=== PATIENT | male | born 1960 | race Caucasian/White ===

== ENCOUNTER → 2024-05-29 08:12 | Outpatient (BNVA) | payer OTHER, SELFPAY | PROVIDERS: PCP Family Medicine; Visit Provider Specialist | DX: M67.441 Ganglion, right hand (principal) | CPT/HCPCS: 73130 ==

== ENCOUNTER 2024-06-20 15:13 | Outpatient (CLI) | payer OTHER, SELFPAY ==
--- NOTE | 2024-06-20 15:25 | MR_ITS ---
WS: [id number] MRI LEFT SHOULDER NONCONTRAST TECHNIQUE: Sagittal T2, coronal T1, T2 and proton density imaging. Axial gradient PDE imaging. CLINICAL INFORMATION: L SHOULDER PAIN COMPARISON: None. FINDINGS: Moderate to advanced arthritis AC joint with small amount of fluid and edema. Slight impingement of t he distal supraspinatus. Advanced arthritis glenohumeral articulation with hypertrophic spurring along the humeral neck. Bone- on-bone articulation. Subchondral cystic change involving the humeral head and glenoid. Joint effusio n. Chronic thinning of the supraspinatus which appears intact. Chronic thinning of the infraspinatus wit h tiny insertional tear. Teres minor appears intact. Subscapularis tendon appears intact with tendino dipti. Biceps tendon intact within the bicipital groove. Intra-articular biceps tendon appears intact with tendinopathy. Biceps labral anchor appears intact. Chronic degenerative irregularity of the gle noid labrum. MR/MR shoulder LT wo con* [id number] IMPRESSION: 1. Moderate to advanced degenerative arthritis AC joint with fluid and edema. Mild narrowing of the subacromial space. 2. Advanced arthritis of the glenohumeral articulation with hypertrophic spurr ing along the medial humeral head and neck. 3. Chronic thinning of the distal supraspinatus and infraspinatus. Tiny infras pinatus insertional tear 4. Subscapularis tendon appears intact with tendinopathy. 5. Intra-articular biceps tendon appears intact. 6. Tendinopathy involving the intra-articular biceps tendon. 7. Moderate joint effusion.
== END 2024-06-20 15:14 | disposition home or self-care (01) ==
LOC: RAD 15:14
PROVIDERS: PCP Family Medicine; Visit Provider Family Medicine
DX: M19.012 Primary osteoarthritis, left shoulder (principal); S46.012A Strain of muscle(s) and tendon(s) of the rotator cuff of left shoulder, initial encounter; M75.92 Shoulder lesion, unspecified, left shoulder; M75.21 Bicipital tendinitis, right shoulder; M25.412 Effusion, left shoulder; X58.XXXA Exposure to other specified factors, initial encounter
CPT/HCPCS: 73221

== ENCOUNTER 2024-06-27 18:56 | Emergency (ER) | payer OTHER, SELFPAY ==
[2024-06-27] VITALS (9 sets, daily range): BP systolic 112–140; BP diastolic 57–96; PULSE 71–93; RESP 16–20; O2SAT 96–99; BMI 25.1
--- NOTE | 2024-06-27 19:20 | CTR_ITS ---
PROCEDURE INFORMATION: Exam: CT Abdomen And Pelvis With Contrast Exam date and time: 06/27/2024 8:57 PM Age: 64 years old Clinical indication: Pain; Other: RT testicle; Prior surgery; Surgery date: 6+ months; Surgery type: Hernia; Additional info: Right testicle pain/lower abd pain/hx of hernia TECHNIQUE: Imaging protocol: Computed tomography of the abdomen and pelvis with contrast. Radiation optimization: All CT scans at this facility use at least one of these dose optimization techniques: automated exposure control; mA and/or kV adjustment per patient size (includes targeted exams where dose is matched to clinical indication); or iterative reconstruction. Contrast material: OMNI 350; Contrast volume: 100 ml; Contrast route: INTRAVENOUS (IV); COMPARISON: CR XR KUB [id number] 08/13/2017 10:18 PM RADIATION DOSE METRICS: Total DLP (mGy-cm): 793 FINDINGS: Lungs: Subsegmental bibasilar atelectasis. The visualized lung bases are otherwise grossly clear. Diaphragm: No evidence of diaphragmatic defect. Liver: Hepatic cirrhosis. No significant ascites. No gross evidence of hepatic lesion within limitations of a single phase exam. Gallbladder and biliary ducts: Unremarkable. No intra-hepatic or extra-hepatic biliary dilatation. Pancreas: Unremarkable. Spleen: Unremarkable. Adrenal glands: Unremarkable. Kidneys and ureters: No renal parenchymal abnormality. No hydronephrosis or ureteral stone. Stomach and bowel: Sigmoid colonic diverticulosis without evidence of acute diverticulitis. No bowel obstruction or perienteric inflammatory changes. Appendix: Normal appendix. Intraperitoneal space: No evidence of free air or fluid collection. Vasculature: No aneurysmal dilatation or dissection of the abdominal aorta. The celiac trunk, SMA and SARTHAK are grossly patent. No evidence of IVC thrombus. The portal vein, SMV and splenic veins are grossly patent. Lymph nodes: No adenopathy. Urinary bladder: Grossly unremarkable. Reproductive: Suspected trace bilateral hydroceles. Small fat containing left-sided inguinal hernia. Bones/joints: No evidence of acute fracture or aggressive osseous lesion. Moderate multilevel spondylosis of the lumbar spine with facet arthrosis and osteophytosis. Mild grade 1 anterolisthesis of L3 on L4 secondary to facet arthrosis. There is moderate-severe central stenosis at this level. Grade 1 anterolisthesis of L5 on S1 secondary to chronic bilateral L5 pars defects. Severe right-sided foraminal stenosis. Consider correlation with follow-up outpatient MRI to evaluate for neural impingement. Moderate osteoarthritis of both hips. Soft tissues: No evidence of fluid collection or hematoma in the superficial soft tissues. Fat containing left-sided inguinal hernia measuring approximately 8 cm in length by 2.[address]/CT abdomen pelvis w con* [id number] IMPRESSION: 1. No evidence of acute abnormality in the abdomen or pelvis. 2. Fat containing left-sided inguinal hernia. 3. Hepatic cirrhosis. No significant ascites.
--- NOTE | 2024-06-27 19:21 | ED_ITS ---
HPI - Male Genitourinary 2 General: Chief complaint: Urogenital-Male Stated complaint: severe pain/ pressure in testicles Time Seen by Provider: 06/27/24 19:02 Source: patient Mode of arrival: ambulatory Limitations: no limitations History of Present Illness: Patient is a 64-year-old male present to the emergency department complaining of right testicular pain onset past couple days. History of hernia mesh repair back in the early , states that he has recurrence of his occasionally of his inguinal hernia popping out of place, normally he is able to reduce it but since Monday has not been able to. States the pain is 10/10 worse with any movement. States that he has significant pain with straining for bowel movement. No fever, abdominal pain, nausea/vomiting, or other symptoms at this time MD Complaint: testicle pain Onset (ago): day(s) Duration: constant Location: right testicle Radiation: abdomen Severity: severe Severity scale (1-10): 10 Exacerbating factors: movement Associated symptoms: Deny dysuria, nausea or vomiting Related Data Home Medications Medication Instructions Recorded Confirmed lisinopril 20 mg tablet 20 mg PO DAILY 05/29/24 05/29/24 Allergies Allergy/AdvReac Type Severity Reaction Status Date / Time bee venom Allergy Mild Unknown Uncoded 05/29/24 08:23 Review of Systems 2 General: Reports: 10 or more systems reviewed and unremarkable except in HPI and below Const: Denies: fever(s), chills, change in appetite, change in weight or diaphoresis ENMT: Denies: throat pain or hoarseness Card: Denies: chest pain, palpitations or lightheadedness Resp: Denies: dyspnea, productive cough or wheezing GI: Reports: abdominal pain; Denies: nausea, vomiting, diarrhea, constipation, bloating, change in stool character or hematochezia : Reports: testicular pain; Denies: flank pain, difficulty urinating, dysuria, urinary frequency or urinary urgency Musc: Denies: neck pain or back pain Skin/Breast: Denies: rash or new lesions Neuro: Denies: headache(s) or dizziness PFSH ED 2 PFSH: Social History Smoking and tobacco/nicotine status: current every day tobacco/nicotine user Physical Exam 2 Const: COMMON NORMALS: average body habitus, patient oriented x3, no limitations, alert and well nourished GENERAL APPEARANCE: cooperative O RIENTATION/CONSCIOUSNESS: Yes awake OTHER: Appears uncomfortable lying supine in ED bed HENMT: COMMON NORMALS: normocephalic, atraumatic, hearing grossly normal bilaterally, external ears normal, Normal external nose present, Normal nasal mucous membranes and turbinates present and moist oral mucous membranes HEAD & SCALP: normocephalic and atraumatic NOSE: Normal external nose present and Normal nasal mucous membranes and turbinates present EXTERNAL EAR: Yes external ears normal Eye: COMMON NORMALS: Equal, round and reactive pupils present, EOMs intact bilaterally, conjunctivae normal and normal visual valente by confrontation C ONJUNCTIVA: Yes conjunctivae normal PUPIL: Yes Equal, round and reactive pupils present Neck/C-Spine: COMMON NORMALS: full ROM, supple, no meningeal signs and no JVD Resp: COMMON NORMALS: normal respiratory effort, No retractions, No use of accessory muscles and clear to auscultation bilaterally AUSCULTATION: clear to auscultation bilaterally, no crackles, no rales, no rhonchi and no wheezes Cardio: COMMON NORMALS: no JVD, regular rate, regular rhythm, S1 normal heart sound present, S2 normal heart sound present, No gallops present (Cardio), No clicks present (Cardio), No murmurs present (Cardio), No rub (Cardio) and Peripheral pulses 2+ throughout RATE: regular rate RHYTHM: regular rhythm HEART SOUNDS: S1 normal heart sound present and S2 normal heart sound present PERIPHERAL PULSES: Peripheral pulses 2+ throughout GI: COMMON NORMALS: Normal to inspection, nondistended, normoactive bowel sounds present, Soft to palpation, No hepatosplenomegaly present and no masses AUSCULTATION: Yes normoactive bowel sounds PALPATION: Yes Soft to palpation, No Guarding due to palpation present (GI), No Rigid due to palpation and Yes No hepatosplenomegaly present RECTAL EXAM: Yes deferred OTHER: Reproducible tenderness to palpation of the right suprapubic region : OTHER: Mild tenderness to palpation of the right testicle with no palpable mass or palpable hernia at this time. No significant swelling. Extremity: COMMON NORMALS: normal to inspection and full ROM Neuro: COMMON NORMALS: patient oriented x3, moves all extremities, no focal motor deficits and no sensory deficits noted SENSORIUM/ORIENTATION: Yes alert MENINGEAL SIGNS: Yes no meningeal signs Psych: COMMON NORMALS: mental status grossly normal, cooperative and speech normal SPEECH: Yes normal speech Skin: COMMON NORMALS: no rashes or lesions noted GENERAL SKIN EXAM: no rashes or lesions noted Course 2 Vital Signs: Vital signs: Vital Signs Pulse Rate 76 06/27/24 22:30 Respiratory Rate 18 06/27/24 20:30 Blood Pressure 118/65 06/27/24 22:30 Pulse Oximetry 96 06/27/24 22:30 Oxygen Delivery Me thod Room Air 06/27/24 22:30 MDM - Male Medical Decision Making Patient has history of right inguinal hernia, presented saying he was having pain and could not reduce this hernia. States he has a history of mesh repair in early , it normally is able to reduce it. Complaining of significant pain on arrival, report ported it was specifically worse with straining for bowel movement. No urinary symptoms or other symptoms of nausea vomiting or illness. His lab work unremarkable. Abdomen pelvis CT did not demonstrate any signs of hernia to the right inguinal side, no indications of incarceration or strangulation. There was a fat-containing left-sided inguinal hernia, patient was asymptomatic in this region. On exam also could not appreciate the right sided hernia, though he was tender to palpation in this area. This could be musculoskeletal, however he is encouraged to follow-up with primary care provider for any further evaluation. At recheck he is noted to be sleeping and stating that he is not in as much pain. Reasons to return were discussed, patient discharged home at this time. Lab Data 06/27/24 20:05 06/27/24 20:05 Radiology Impressions Abdomen/Pelvis CT 06/27/24 19:20 IMPRESSION: 1. No evidence of acute abnormality in the abdomen or pelvis. 2. Fat containing left-sided inguinal hernia. 3. Hepatic cirrhosis. No significant ascites. Laboratory Results WBC 12.47 10^3/uL (3.29-11.43) H 06/27/24 20:05 RBC 5.28 10^6/uL (3.85-5.65) 06/27/24 20:05 Hgb 16.10 g/dL (11.27-16.99) 06/27/24 20:05 Hct 48.0 % (37-53) 06/27/24 20:05 MCV 90.9 fl (82-101) 06/27/24 20:05 MCH 30.5 pg (27-33) 06/27/24 20:05 MCHC 33.5 g/dL (30-55) 06/27/24 20:05 RDW 12.4 % (12.1-15.1) 06/27/24 20:05 Plt Count 399 10^3/cmm (157-399) 06/27/24 20:05 MPV 9.2 fL (7.4-10.4) 06/27/24 20:05 Neut % (Auto) 61.4 % 06/27/24 20:05 Lymph % (Auto) 28.3 % 06/27/24 20:05 [place] % (Auto) 8.2 % 06/27/24 20:05 Eos % (Auto) 1.2 % 06/27/24 20:05 Baso % (Auto) 0.4 % 06/27/24 20:05 Neut # (Auto) 7.66 10^3/uL (1.8-7.7) 06/27/24 20:05 Lymph # (Auto) 3.5 10^3/uL (0.8-4.8) 06/27/24 20:05 [place] # (Auto) 1.0 10^3/uL (0.2-0.9) H 06/27/24 20:05 Eos # (Auto) 0.2 10^3/uL (0.0-0.8) 06/27/24 20:05 Baso # (Auto) 0.1 10^3/uL (0.0-0.1) 06/27/24 20:05 Nucleated RBC % (auto) 0 % 06/27/24 20:05 Nucleated RBCs # 0.0 /100WBC 06/27/24 20:05 Sodium 139 mmol/L (136-145) 06/27/24 20:05 Potassium 3.4 mmol/L (3.5-5.1) L 06/27/24 20:05 Chloride 101 mmol/L (98-107) 06/27/24 20:05 Carbon Dioxide 23 mmol/L (22-29) 06/27/24 20:05 Anion Gap 18.4 (5-19) 06/27/24 20:05 BUN 14 mg/dL (8-23) 06/27/24 20:05 Creatinine 1.2 mg/dL (0.7-1.2) 06/27/24 20:05 GFR Calculation 61.3 mL/min (90-130) L 06/27/24 20:05 Glucose 116 mg/dL (65-115) H 06/27/24 20:05 Calculated Osmolality 289 mOsm/kg (285-295) 06/27/24 20:05 Calcium 9.0 mg/dL (8.5-10.5) 06/27/24 20:05 Total Bilirubin 0.9 mg/dL (0.15-1.2) 06/27/24 20:05 AST 42 U/L (0-40) H 06/27/24 20:05 ALT 45 U/L (0-41) H 06/27/24 20:05 Alkaline Phosphatase 88 U/L (40-130) 06/27/24 20:05 Total Protein 7.6 g/dL (6.6-8.7) 06/27/24 20:05 Albumin 3.9 g/dL (3.5-5.2) 06/27/24 20:05 Globulin 3.7 g/dL (1.3-4.6) 06/27/24 20:05 All radiology interpretation(s) finalized by discharge Discharge Plan Discharge Patient Disposition: Home Clinical Impression: RLQ abdominal pain, History of inguinal hernia Condition: Stable Prescriptions: No Action lisinopril 20 mg tablet 20 mg PO DAILY Discharge Orders: Discharge ED (Routine); Ordered 06/27/24 Ordered By: Martin Robison Referrals: Sanchez Mccabe MD [Primary Care Provider] - Discharge Diet: Usual diet Discharge Activity: Increase activity as tolerated Patient Instructions: Abdominal Pain (ED), Opioid Safety, Pain Management Activity Restrictions/Additional Instructions: Follow-up with your primary care provider early next week as discussed. Tylenol or ibuprofen for pain relief at home. If you have any severe worsening of your pain or other new or concerning symptoms return to the emergency department. Coding Level of Care Code ED Director Systems for Deo Beltran
[2024-06-27] MEDS: ketorolac 30 mg/mL INJ IVP (20:09)
--- NOTE | 2024-06-27 20:13 | PC.NURSE ---
pt requesting water, VAISHALI Robison notified and okayed pt to drink.
[2024-06-27 20:20] LABS: Basophils # 0.1 10^3/uL (0.0-0.1); Basophils % 0.4 %; Eosinophils # 0.2 10^3/uL (0.0-0.8); Eosinophils % 1.2 %; Lymphocytes # 3.5 10^3/uL (0.8-4.8); Lymphocytes % 28.3 %; Mean Corpuscular HGB Conc 33.5 g/dL (30-55); Mean Corpuscular Hemoglobin 30.5 pg (27-33); Mean Corpuscular Volume 90.9 fl (82-101); Mean Platelet Volume 9.2 fL (7.4-10.4); Monocytes % 8.2 %; Neutrophils # 7.66 10^3/uL (1.8-7.7); Neutrophils % 61.4 %; Nucleated Red Blood Cells % 0 %; Platelet Count 399 10^3/cmm (157-399); Red Blood Count 5.28 10^6/uL (3.85-5.65); Red Cell Distribution Width 12.4 % (12.1-15.1); White Blood Count 12.47 10^3/uL (3.29-11.43)
[2024-06-27 20:43] LABS: Alanine Aminotransferase 45 U/L (0-41); Albumin Level 3.9 g/dL (3.5-5.2); Alkaline Phosphatase 88 U/L (40-130); Anion Gap 18.4 (5-19); Aspartate Amino Transferase 42 U/L (0-40); Blood Urea Nitrogen 14 mg/dL (8-23); Carbon Dioxide 23 mmol/L (22-29); Chloride 101 mmol/L (98-107); Creatinine Clr Calc Pharmacy 70.2711; Globulin 3.7 g/dL (1.3-4.6); Glomerular Filtration Rate 61.3 mL/min (90-130); Glucose 116 mg/dL (65-115); Osmolality Calculated 289 mOsm/kg (285-295); Potassium 3.4 mmol/L (3.5-5.1); Sodium 139 mmol/L (136-145); Total Bilirubin 0.9 mg/dL (0.15-1.2); Total Protein 7.6 g/dL (6.6-8.7)
[2024-06-27] MEDS: iohexol 350 mg/mL 500 mL Btl (per mL) IV (21:01)
== END 2024-06-27 22:40 | disposition home or self-care (01) ==
PROVIDERS: Emergency Provider Physician Assistant; PCP Family Medicine
DX: R10.31 Right lower quadrant pain (principal); Z72.0 Tobacco use
CPT/HCPCS: 74177; 80053; 85025; 96374; 99285; J1885

== ENCOUNTER 2024-07-04 10:16 | Outpatient (CLI) | payer OTHER, SELFPAY ==
--- NOTE | 2024-07-04 10:18 | CT_ITS ---
WS: [id number] LDCT LUNG CANCER SCREENING HISTORY: NICOTINE DEPENDENCE TECHNIQUE: Axial imaging performed from the apices to 1 cm below the costophrenic angles. Coronal and sagittal reformats are submitted with axial MIP series. All CT scans at [facility] use at least one of these dose optimization techniques: automated exposure control; mA and/or kV adjustment per patient size (includes targeted exams where dose is matched to clinical indication); or iterativ e reconstruction. DLP: 72.01 mGy.cm DIvol: Mean CTDIvol: 1.40 (mGy) COMPARISON: 06/27/2024 Diagnostic quality: Satisfactory Lungs: Moderate pulmonary hyperinflation. No pulmonary mass or nodule. No pneumonia. No endobronchial lesions. Heart: Normal size heart with no pericardial effusion.. Other findings: Minimal atherosclerosis aorta. Normal size pulmonary artery. Small hiatal hernia. Cir rhotic liver. CT/CT lung screening [id number] IMPRESSION: LUNG-RADS: 1-Negative FOLLOW UP: 12 Month: Continue annual screening with LDCT OTHER FINDINGS (S MODIFIER): None.
== END 2024-07-04 10:17 | disposition home or self-care (01) ==
LOC: RAD 10:16
PROVIDERS: PCP Family Medicine; Visit Provider Family Medicine
DX: Z12.2 Encounter for screening for malignant neoplasm of respiratory organs (principal); J98.4 Other disorders of lung; K44.9 Diaphragmatic hernia without obstruction or gangrene; K74.60 Unspecified cirrhosis of liver
CPT/HCPCS: 71271

== ENCOUNTER → 2024-08-21 10:21 | Outpatient (BNVA) | payer OTHER, SELFPAY | PROVIDERS: PCP Family Medicine; Visit Provider Specialist | DX: M25.512 Pain in left shoulder (principal); M19.012 Primary osteoarthritis, left shoulder | CPT/HCPCS: 73030 ==

== ENCOUNTER 2024-08-27 12:01 | Outpatient (CLI) | payer OTHER, SELFPAY ==
--- NOTE | 2024-08-27 12:06 | USR_ITS ---
PROCEDURE INFORMATION: Exam: US Scrotum Exam date and time: 08/27/2024 12:19 PM Age: 64 years old Clinical indication: Scrotum pain; Additional info: Scrotal pain TECHNIQUE: Imaging protocol: Real-time ultrasound of the scrotum and contents with color Doppler and image documentation. COMPARISON: CT abdomen pelvis w con* [id number] 06/27/2024 8:57 PM FINDINGS: Right testicle: Normal. No mass. Normal color Doppler and arterial waveforms. No torsion. 4.6 cm x 2.3 cm x 3.4 cm Left testicle: Normal. No mass. Normal color Doppler and arterial waveforms. No torsion. Epididymides: Normal. Left 8 mm x 11 mm x 9 mm. Right epididymis is not visible Scrotum/soft tissues: Small left side hydroceles. Other findings: 4.5 cm x 2.6 cm x 3.4 cm US/US scrotum [id number] IMPRESSION: 1. Normal testicular ultrasound. 2. Normal left epididymis 3. Right epididymis is not visible 4. Small left-sided hydrocele
== END 2024-08-27 12:02 | disposition home or self-care (01) ==
LOC: RAD 12:02
PROVIDERS: PCP Family Medicine; Visit Provider Nurse Practitioner Family
DX: N43.3 Hydrocele, unspecified (principal); R10.30 Lower abdominal pain, unspecified
CPT/HCPCS: 76870

== ENCOUNTER 2025-08-02 16:13 | Day surgery (SDC) | payer SELFPAY ==
[2025-08-02] VITALS (14 sets, daily range): BP systolic 115–152; BP diastolic 68–86; PULSE 62–86; RESP 12–20; TEMP 36.6–36.9; O2SAT 91–99
--- NOTE | 2025-08-02 | XR_ITS ---
WS: [id number] Left hand, C-arm fluoroscopy views, 08/02/2025 Clinical Data: OR PICS Comparison: Left hand, 08/02/2025, 1649 hours Findings: Dr. Agudelo performed complex tendon repair and bone fragment removal involving the left fifth finger and left fourth metacarpal. XR/XR hand LT 2V [id number] Impression: Complex tendon repair and bone fragment removal of the left fifth finger and le ft fourth metacarpal.
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
--- OUTSIDE RECORDS SUMMARY | 2025-08-02 16:18 | XMS_ITS | Data Portability ---
Author Organization VERNON [facility] Address [address] [place] [address] Care Team Providers Care Surgical Assistant Name Role Phone MARY MCCABE Primary Care Provider Assessment No assessment recorded. Plan of Treatment Reminders Order Date Submit Date Provider Last Modified By Organization Details Last Modified Time Details Appointments None recorded. Lab lipid panel, blood 2023 024 SmartPay Jieyin [facility], [address] [place] , [place], [address], 4 08:04:15 CMP, serum or plasma 2023 024 Shareablee [facility], [address] [place], [address], 4 07:25:05 CBC 2023 024 BELLA [facility], [address] [facility], [facility] [address], [place], [address], 4 11:23:53 Referral urologist referral 2023 024 [email or web address] [facility], [address], [place], [address], 4 09:43:59 orthopedic surgeon referral 2023 024 [email or web address] 8 [facility], [address] [place], [address], 4 12:21:42 orthopedic surgeon referral 2023 024 [email or web address] [facility], [address] [place], [address], 4 13:34:42 Procedures colonoscopy screening (PROC) 2023 024 [email or web address] Not available 17:48:56 Surgeries None recorded. Imaging LDCT, chest, for lung cancer screening 2023 024 [email or web address] [facility], [address] [place], [address], 4 13:51:22 MRI, shoulder, w/o contrast 2023 024 [email or web address] 2 [facility], [address] [place], [address], 4 16:11:45 Medication Orders Celebrex 200 mg capsule 2023 024 [email or web address] [facility]/Pharmacy #[id number], [address] [facility] [address], [address], 4 13:00:03 levofloxaci n 500 mg tablet 2023 024 [id number], [address] [facility] [address], [address], 4 09:46:52 lisinopril 20 mg tablet 2023 024 [facility]/Pharmacy #[id number], [address] [facility] [address], [address], 4 17:19:40 Patient TargetsNo targets recorded. Patient InstructionsNo instructions recorded. Reason for Referral Orthopedic Surgeon Referral for Ganglion cyst of right hand Referring Physician: Mary Mccabe, Family Medicine, Encounter Date: 05/08/2024 Orthopedic Surgeon Referral for Osteoarthritis of shoulder region Referring Physician: Mary Mccabe [facility], Encounter Date: 07/08/2024 Urologist Referral for Pain of right testicle Referring Physician: Mary Mccabe [facility], Encounter Date: 07/19/2024 Results Created Date Observation Date Name Description Value Unit Range Abnormal Flag Note LastModifiedBy Organization Detail LastModifiedTime 05/09/20 24 05/09/2024 CBC WBC 7.5 x10 4.5-10 .5 Not Available [facility] [address] [facility] [address], [place], [address], 05/09/2024 11:23:53 05/09/20 24 05/09/2024 CBC RBC 4.73 x10 4.30-5 .90 Not Available [facility] [address] [facility], [place], [address], 05/09/2024 11:23:53 05/09/20 24 05/09/2024 CBC HGB 14.7 g/dL 13.5-1 8.0 Not Available [facility] [address] [facility] 1, [place], [address], 05/09/2024 11:23:53 05/09/20 24 05/09/2024 CBC HCT 43.4 % 35.0-6 0.0 Not Available [facility] [address] [facility], [place], [address], 05/09/2024 11:23:53 05/09/20 24 05/09/2024 CBC MCV 91.7 fL 80.0-9 9.9 Not Available [facility] [address] [facility] Melissa [facility] 1, [place], [address], 05/09/2024 11:23:53 05/09/20 24 05/09/2024 CBC MCH 31.1 pg 27.0-3 2.0 Not Available [facility] [address] [facility] 1, [place], [address], 05/09/2024 11:23:53 05/09/20 24 05/09/2024 CBC MCHC 33.9 g/dL 32.0-3 6.0 Not Available [facility] [address] [facility], [place], [address], 05/09/2024 11:23:53 05/09/20 24 05/09/2024 CBC RDW 13.9 % 11.5-1 4.5 Not Available [facility] [address] [facility], [place], [address], 05/09/2024 11:23:53 05/09/20 24 05/09/2024 CBC plt 250.3 x10 150.0- 451.0 Not Available [facility] [address] [facility], [place], [address], 05/09/2024 11:23:53 05/09/20 24 05/09/2024 CBC lymphocytes % 37.5 % 20.0-5 0.0 Not Available [facility] [address] [facility] 1, [place], [address], 05/09/2024 11:23:53 05/09/20 24 05/09/2024 CBC granulcytes % 51.2 % 30.0-7 0.0 Not Available [facility] [address] [facility] 1, [place], [address], 05/09/2024 11:23:53 05/09/20 24 05/09/2024 CBC monocytes % 6.9 % 2.0-16 .0 Not Available [facility] [address] [facility] 1, [place], [address], 05/09/2024 11:23:53 05/09/20 24 05/09/2024 CBC granulcytes# 3.8 x10 Not Roula ilable [facility] [address] [facility] [address], [place], [address], 05/09/2024 11:23:53 05/09/20 24 05/09/2024 CBC lymphocytes # 2.8 x10 Not Available [facility] [address], [place], [address], 05/09/2024 11:23:53 05/09/20 24 05/09/2024 CBC monocytes # 0.5 x10 Not Avai lable [facility] [address] [facility] [address], [place], [address], 05/09/2024 11:23:53 05/09/20 24 05/10/2024 LIPID PANEL , STAND WALLY cholesterol, total 112 mg/dL <200 normal Not Available [address], [address], 05/10/2024 07:25:04 05/09/20 24 05/10/2024 LIPID PANEL , STAND WALLY HDL cholesterol 49 mg/dL > or = 40 normal Not Available [address], [address], 05/10/2024 07:25:04 05/09/20 24 05/10/2024 LIPID PANEL , STAND WALLY triglyceride s 68 mg/dL <150 normal Not Available [address], [address], 05/10/2024 07:25:04 05/09/20 24 05/10/2024 LIPID PANEL , STAND WALLY LDL-choleste rol 49 mg/dL _(maritza c) normal Refer ence range : <100 Beena able range <100 mg/dL for prima ry preve ntion ; <70 mg/dL for patie nts with CHD or diabe tic patie nts with > or = 2 CHD risk facto rs. LDL-C is now calcu lated using the Julia n-[facility] kins taylor mijares, which is a valid ated novel metho d jef jeffery accur acy than the Fried lit equat ion in the estim ation of LDL-C . Julia mijares SS et al. BRYAN. 2013; 310(1 9): 2061- 2068 (http ://ed ucati on.Qu lawsonEtacts. com/f aq/FA Q164) Not Available [facility] [address] [address] [place], [address], 05/10/2024 07:25:04 05/09/20 24 05/10/2024 LIPID PANEL , STAND WALLY chol/HDLC ratio 2.3 (calc ) <5.0 normal Not Available [address] , [place], [address], 05/10/2024 07:25:04 05/09/2005/10/2024 LIPID PANEL , STAND WALLY non HDL cholesterol 63 mg/dL _(maritza c) <130 normal For patie nts with diabe jenny plus 1 major ASCVD risk facto r, treat ing to a non-H DL-C goal of <100 mg/dL (LDL- C of <70 mg/dL ) is jaquan wilson optio n. Not Available [address] [address] [address] , [place], [address], 05/10/2024 07:25:04 05/09/2005/10/2024 COMPR EHENS JENNIFER METAB OLIC PANEL glucose 153 mg/dL 65-99 high Fasti ng refer ence inter courtney For someo ne witho ut known diabe jenny, a gluco se value >125 mg/dL indic ates that they may have diabe jenny and this shoul d be confi rmed with a follo w-up test. Not Available [facility] [address] [address] [address], [place], [address], 05/10/2024 07:25:05 05/09/20 24 05/10/2024 COMPR EHENS JENNIFER METAB OLIC PANEL urea nitrogen (BUN) 17 mg/dL 7-25 normal Not Available [address], [address], 05/10/2024 07:25:05 05/09/20 24 05/10/2024 COMPR EHENS JENNIFER METAB OLIC PANEL creatinine 0.88 mg/dL 0.70-1 .35 normal Not Available [address], [address], 05/10/2024 07:25:05 05/09/20 24 05/10/2024 COMPR EHENS JENNIFER METAB OLIC PANEL eGFR 97 mL/mi n/1.7 3m2 > or = 60 normal Not Available [address], [address], 05/10/2024 07:25:05 05/09/20 24 05/10/2024 COMPR EHENS JENNIFER METAB OLIC PANEL BUN/creatini ne ratio SEE NOTE: (calc ) 6-22 Not Repor adrian: BUN and Creat inine are withi n refer ence range . Not Available [address], [address], 05/10/2024 07:25:05 05/09/20 24 05/10/2024 COMPR EHENS JENNIFER METAB OLIC PANEL sodium 137 mmol/ L 135-14 6 normal Not Available [address], [address], 05/10/2024 07:25:05 05/09/20 24 05/10/2024 COMPR EHENS JENNIFER METAB OLIC PANEL potassium 4.1 mmol/ L 3.5-5. 3 normal Not Available [address], [address], 05/10/2024 07:25:05 05/09/20 24 05/10/2024 COMPR EHENS JENNIFER METAB OLIC PANEL chloride 105 mmol/ L 98-110 normal Not Available [address], [address], 05/10/2024 07:25:05 05/09/20 24 05/10/2024 COMPR EHENS JENNIFER METAB OLIC PANEL carbon dioxide 23 mmol/ L 20-32 normal Not Available [address], [address], 05/10/2024 07:25:05 05/09/20 24 05/10/2024 COMPR EHENS JENNIFER METAB OLIC PANEL calcium 8.9 mg/dL 8.6-10 .3 normal Not Available [address], [address], 05/10/2024 07:25:05 05/09/20 24 05/10/2024 COMPR EHENS JENNIFER METAB OLIC PANEL protein, total 6.6 g/dL 6.1-8. 1 normal Not Available [address], [address], 05/10/2024 07:25:05 05/09/20 24 05/10/2024 COMPR EHENS JENNIFER METAB OLIC PANEL albumin 3.6 g/dL 3.6-5. 1 normal Not Available [address], [address], 05/10/2024 07:25:05 05/09/20 24 05/10/2024 COMPR EHENS JENNIFER METAB OLIC PANEL globulin 3.0 g/dL_ (calc ) 1.9-3. 7 normal Not Available [address], [address], 05/10/2024 07:25:05 05/09/20 24 05/10/2024 COMPR EHENS JENNIFER METAB OLIC PANEL albumin/glob ulin ratio 1.2 (calc ) 1.0-2. 5 normal Not Available [address], [address], 05/10/2024 07:25:05 05/09/20 24 05/10/2024 COMPR EHENS JENNIFER METAB OLIC PANEL bilirubin, total 0.6 mg/dL 0.2-1. 2 normal Not Available [address], [address], 05/10/2024 07:25:05 05/09/20 24 05/10/2024 COMPR EHENS JENNIFER METAB OLIC PANEL alkaline phosphatase 74 U/L 35-144 normal Not Available [address] [address] [place], [address], 05/10/2024 07:25:05 05/09/20 24 05/10/2024 COMPR EHENS JENNIFER METAB OLIC PANEL AST 38 U/L 10-35 high Not Available [address], [address], 05/10/2024 07:25:05 05/09/20 24 05/10/2024 COMPR EHENS JENNIFER METAB OLIC PANEL ALT 39 U/L 9-46 normal Not Available [address], [address], 05/10/2024 07:25:05 06/21/20 24 06/20/2024 MRI, shoul sudheer, w/o contr ast No observ ation record ed. [facility] [address] [place], [address], 06/25/2024 14:22:08 07/04/20 24 07/04/2024 LDCT, chest , for lung cance r scree bartolo No observ ation record ed. [facility] [address] [place], [address], 07/07/2024 11:59:47 Result Notes None recorded. Problems Name Problem SNOMED Code Status Onset Date Resolution Date Notes Provider Name and Address Organization Details Recorded Time Pain of left shoulder joint 9734731525059 9109 Active 2023 Mary Mccabe MD [address] [place] [address], [address] [place] [address] 5, [facility] 4 15:13:57 Elevated blood-press ure reading without diagnosis of hypertensio n 843671871 Active 2023 Mary Mccabe MD [address] [place] [address], [address] [place] [address] 5, [facility] 4 15:19:18 Essential hypertensio n 08933905 Active 2023 Mary Mccabe MD [address] [place] [address] 5, [facility] 4 17:19:15 Smoker 14664567 Active 2023 Mary Mccabe MD [address] [place] [address] 5, [facility] 4 17:22:40 Ganglion cyst of right hand 2528861005009 07 Active 2023 Mary Mccabe MD [address] [place] [address] 5, [facility] 4 17:28:14 Orchitis and epididymiti s 615475036 Active 2023 Mary Mccabe MD [address] [place] [address] 5, [facility] 4 11:01:44 Osteoarthri tis of shoulder region 63682732 Active 2023 Mary Mccabe MD [address] [place] [address] 5, [facility] 4 11:04:59 Pain of right testicle 6750170101730 9107 Active 2023 Mary Mccabe MD [address] [place], [address], [facility], TinaLYvonne 4 10:00:36 Problem Notes None recorded. Procedures Surgical History Date Name Laterality Status Provider Name and Address Organization Details Recorded Time Hernia Repair completed Pamella Chowdhury [facility], Dhruv 05/02/2024 14:56:07 leg repair completed Sneads Ferrymark Chowdhury [facility], LJhonLYvonne 05/02/2024 14:56:19 Imaging Results None recorded. Procedure Notes None recorded. Medical Equipment None Reported. Allergies Allergen ID Allergen Name Allergen Category Reaction Reaction Severity Criticality Documentation Date Start Date Code Code System Note Provider Name and Address Organization Details Recorded Time 77179 honey bee venom medicatio n Not available Not available Not available 05/02/2024 77257 7 RxNorm Pamella Chowdhury [facility], TinaLYvonne 4 14:54:49 Medications Name Sig Start Date Stop Date Status Note LastModified by Organization Details LastModified Time celecoxib 200 mg capsule Take 1 capsule twice a day by oral route. active Not Available Not Available No t Available meloxicam 15 mg tablet TAKE 1 TABLET BY MOUTH DAILY active Not Available Not Available No t Available lisinopril 20 mg tablet TAKE 1 TABLET BY MOUTH EVERY DAY active Not Available Not Available No t Available levofloxacin 500 mg tablet TAKE 1 TABLET BY MOUTH EVERY 24 HOURS FOR 10 DAYS 07/19 completed Not Available Not Available Not Available Vitals Date Recorded Body height Body mass index (BMI) Body weight Head circumference Heart rate Respiratory rate Body temperature Systolic And Diastolic Systolic And Diastolic Provider Name and Address Organization Details Last Updated DateTime 4 180.34 cm 27 kg/m2 45055.7 3 g 238.76 cm 87 /min 16 /min 98.2 [degF] 200/118 mm[Hg] 166/100 mm[Hg] Pamella Chowdhury [facility], L.LYvonne 4 15:11:43 Date Recorded Body height Body mass index (BMI) Body weight Body temperature Oxygen saturation Oxygen saturation in Arterial blood by Pulse oximetry Heart rate Systolic And Diastolic Provider Name and Address Organization Details Last Updated DateTime 4 180.34 cm 26.9 kg/m2 33323.3 3 g 97.6 [degF] 98 % 98 % 80 /min 150/90 mm[Hg] [facility] 4 17:07:26 Date Recorded Body height Body mass index (BMI) Body weight Body temperature Oxygen saturation Oxygen saturation in Arterial blood by Pulse oximetry Heart rate Systolic And Diastolic Provider Name and Address Organization Details Last Updated DateTime 4 180.34 cm 26.1 kg/m2 47852.4 7 g 97.4 [degF] 98 % 98 % 71 /min 142/84 mm[Hg] [facility] 4 10:52:23 Date Recorded Body height Body mass index (BMI) Body weight Body temperature Oxygen saturation Oxygen saturation in Arterial blood by Pulse oximetry Heart rate Systolic And Diastolic Provider Name and Address Organization Details Last Updated DateTime 4 180.34 cm 25.4 kg/m2 31205.8 1 g 97.3 [degF] 98 % 98 % 90 /min 150/84 mm[Hg] [facility] 4 09:49:24 Date Recorded Body height Body mass index (BMI) Body weight Body temperature Oxygen saturation Oxygen saturation in Arterial blood by Pulse oximetry Heart rate Systolic And Diastolic Provider Name and Address Organization Details Last Updated DateTime 4 180.34 cm 26.6 kg/m2 45430.3 5 g 97.3 [degF] 99 % 99 % 66 /min 140/84 mm[Hg] [facility] 4 12:53:05 Social History Question Answer Notes LastModified by Organizat ion Details LastModified Time Tobacco Smoking Status Current Every Day [facility] 05/02/2024 14:57:39 What Is Your Level Of Caffeine Consumption? Moderate Information not available 05/08/2024 What Type Of Diet Are You Following? REGULAR Information not available 05/08/2024 Which Illicit Or Recreational Drugs Have You Used? Marijuana Information not available 05/08/2024 Who Is Your Employer? [employer] Information not available 05/08/2024 What Is Your Relationship Status? Information not available 05/08/2024 Do You Have Any Dietary Restrictions? No Information not available 05/08/2024 Sex: Unknown Functional Status Question Answer Note LastModified by Organizat ion Details LastModified Time Do you use any illicit or recreational drugs? Yes Information not available 05/08/2024 What is your level of alcohol consumption? Heavy Information not available 05/08/2024 Are you currently employed? Yes Information not available 05/08/2024 Are you able to walk independently without assistance or assistive devices? YESWOREST Information not available 05/08/2024 Are you able to care for yourself independently? Yes Information not available 05/08/2024 Mental Status None recorded. Family History Nothing Reported. Medical History No medical history recorded. Immunizations Vaccine Type Date Status Note Provider Nam e and Address Organization Details Recorded Time Hep A-Hep B 05/07/2019 completed Sandra Harrington [facility], .L.CJhon 05/21/2024 07:53:32 Past Encounters Encounter ID Performer Location Encounter Start Date Encounter Closed Date Diagnosis/Indication Diagnosis SNOMED-CT Code Diagnosis ICD10 Code Diagnosis IMO Codes Diagnosis Note [id number] Mary Mccabe MD [facility] ([facility]) [address] [place] [phone] 05/02/2024 14:48:27 05/02/2024 17:49:52 Pain of left shoulder joint 9728263513 8426284 M25.512 The patient likely has a torn rotator cuff based on exam. The patient has done conservati ve therapy is not under a physician guidance. I would recommend obtaining a MRI for further evaluation and to guide proper treatment. Elevated blood-pressure reading without diagnosis of hypertension 042306902 R03.0 Patient blood pressure is elevated today. Patient states that he has had high blood pressure in the past and has been on medication before. Patient states he does not regularly check his blood pressure. Recommend that he checks his blood pressure at home and establishe s care with a PCP to review the log of his blood pressure readings and potentiall y restart his medication s. [id number] Mary Mccabe MD [facility] ([facility]) [address] [place] [phone] 05/08/2024 17:00:04 05/08/2024 17:55:30 Essential hypertension 14596247 I10 Patient does have hypertensi on. Discussed starting medication and patient was agreeable. Will start with lisinopril and obtain lab work today. Smoker 38721310 F17.200 Screening for malignant neoplasm of respiratory tract 102512026 Z12.2 Meets her criteria for low-dose CT for lung cancer screening. Screening for malignant neoplasm of colon 366916861 Z12.11 Recommend the patient proceed with colonoscop y. Patient was encouraged to make a colonoscop y consult with Dr. Maldonado or Dr. Shane. Hyperlipid emia screening 298999761 Z13.220 Ganglion c yst of right hand 0797044932 64463 M67.441 Exam is consistent with a ganglion cyst. Since he is having significan t symptoms with that, I would recommend evaluation for surgical excision. [id number] Mary Mccabe MD [facility] ([facility]) [address] [place] [phone] 07/08/2024 10:44:56 07/08/2024 11:25:03 Orchitis and epididymitis 517800124 N45.3 Likely epididymit is based on history and exam. Will start levofloxac in. Follow-up if symptoms do not improve. Osteoarthr itis of shoulder region 56809468 M19.019 Discussed significan t degenerati ve changes within his shoulder. Recommende d orthopedic referral and the patient was agreeable. Smoker 15557135 F17.200 Low-dose CT was negative for concerning lesions. Repeat in 1 year. [id number] Mary Mccabe MD [facility] ([facility]) [address] [place] [phone] 07/19/2024 09:37:18 07/19/2024 10:14:11 Pain of right testicle 1982455376 5885344 N50.811 Given the persistent pain, we will go ahead and set him up for urology. Patient was encouraged to avoid lifting greater than 20 pounds and avoid movements that seem to exacerbate his pain. Patient was agreeable with the plan. [id number] Mary Mccabe MD [facility] ([facility]) [address] [place] [phone] 09/03/2024 12:44:57 09/03/2024 13:17:57 Pain of left shoulder joint 8184803363 9573263 M25.512 Osteoarthr itis of shoulder region 11503548 M19.019 Patient does have significan t disease of his shoulder and it is not surprising that shoulder replacemen t is recommende d. Patient is coming continue with restrictio ns and has received a shoulder injection. Patient is trying to get to a point where he is able to proceed with surgery. Will prescribe Celebrex and have him stop the meloxicam. Health Concerns Section Related Observation LastModified by Organization Detai ls LastModified Time None Recorded Concern Status LastModified by Organization Details LastModified Time None Recorded Advance Directives Directive None Recorded Payers Insurance Date Sequence Insurance Name Policy Number Policy Jansen Covered Member ID Jansen Member ID Guarantor Name 09/03/2024 1 USHA REZA [employer] ([employer]) [id number] Maciej Park [id number] 1 [id number] Maciej Park Notes Date Note Type Note Provider Name and Address Organization Details Recorded Time 05/02/2024 text/html Joint PainReport ed by PatientHPIFor quality, patient reportssharp. For location, patient reportsleft shoulder.ROS as noted in the HPI This is a 64-year-old gentleman that comes in today to discuss chronic left shoulder pain. The patient recently just obtained insurance and wanted to come in to get evaluated and get the ball rolling on evaluation and treatment. If patient does not have a regular doctor. 6 patient has no new medical issues. Patient denies any specific injury to his left shoulder but states that it is wear and tear . Patient believes he has torn his rotator cuf as he has significant pain and difficulty lifting his arm. Mary Mccabe MD [address] [place] [address], [phone], [facility] 05/05/2024 09:02:39 05/08/2024 text/html Musculoskeletal PainReported by PatientHPIFor quality, patient reportssharp,tingling, anddull. For severity, patient reportsworsening,inter feres with sleep, andinterferes with work/school. For associated symptoms, patient reportsweak limbsandtinglingbut reportsno fever. For location, patient reportsleft shoulder. For duration, patient reportspresent for >12 months. For alleviating factors, patient reportsrest. For aggravating factors, patient reportsmovement/positi oning,bending over, andtwisting.ROS as noted in the HPI This is a 64-year-old gentleman that comes in today to establish care. Patient has been checking his blood pressure at home and it has been elevated when he checks it at home as well as again in the office today. Patient was seen in the walk-in for his left shoulder pain. MRI has been ordered. Patient has not had lab work or any kind of health maintenance in several years. Patient has never had a colonoscopy. Patient is a smoker and has greater than 10-[id number]-ggpn history. The patient also has a lesion on his right wrist. The patient has had a swelling around this wrist and states that he accidentally struck it against the machine at work and has had some numbness and tingling of his fingers. Patient has noticed some improvement in his numbness. Mary Mccabe MD [address] [place] [address], [phone], [facility] 05/09/2024 09:55:20 07/08/2024 text/html This is a 64-year-old gentleman that comes in today for ER follow-up. The patient went to the ER due to testicular pain. The patient was concerned about a inguinal hernia. The patient underwent imaging that did not demonstrate hernia. The patient is continues to have right testicular pain near the posterior aspect that radiates up into his inguinal canal. Patient denies any concerns for STDs. Patient also had not received his test results from his imaging. Mary Mccabe MD [address] [place] [address], [phone], [facility] 07/11/2024 10:42:49 07/19/2024 text/html ROS as noted in the HPI Pt finished his abx but states that he is still having right testicle pain. Pt thinks the mesh from hernia has busted through . Pt states that it is a sharp constant pain, worse with movement. Patient reports just minimal improvement with antibiotics. Pain is definitely exacerbated with certain movements. Mary Mccabe MD [address] [place] [address], [phone], [facility] 07/21/2024 08:11:50 09/03/2024 text/html This is a 64-year-old gentleman that comes in today for routine follow-up. The patient has seen orthopedics and they recommended a shoulder replacement. The patient is going to hold off on surgery at this time. The patient received shoulder injection. Patient was started on meloxicam but he has not tolerated it well. The patient would like to try Celebrex. The patient did see urology and they found no concerning findings so now he has a follow-up with surgery for evaluation of possible recurrent hernia. Mary Mccabe MD [address] [place] [address], [phone], [facility] 09/04/2024 16:26:12
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
--- NOTE | 2025-08-02 16:39 | W.ED.WOUNDLC ---
HPI - Wound/Laceration General: Chief Complaint: Wound/Laceration Stated Complaint: L hand Pinkey cut Time Seen by Provider: 08/02/25 16:29 History of Present Illness: 62-year-old male presents emergency room after a chainsaw accident he has a cut on the dorsal aspect of his left hand extending across the fifth MP joint to the proximal phalanx joint. He is unsure of his last tetanus. He can partially extend the finger. He denies any other injuries. Related Data Home Medications ?Medication ?Instructions ?Recorded ?Confirmed lisinopril 20 mg tablet 20 mg PO DAILY 05/29/24 08/21/24 Previous Rx's ?Medication ?Instructions ?Recorded meloxicam 15 mg tablet 15 mg PO DAILY #30 tabs 08/22/24 amoxicillin 500 mg-potassium 1 tab PO BID complex laceration, 08/02/25 clavulanate 125 mg tablet infection prevention 10 days #20 (Augmentin) tabs calcium 600 mg (as 1 tab PO DAILY Bone health and 08/02/25 carbonate)-vitamin D3 10 mcg (400 healing 30 days #30 tabs unit) tablet (Calcium 600 + D(3)) Allergies Allergy/AdvReac Type Severity Reaction Status Date / Time bee venom Allergy Mild Unknown Uncoded 08/02/25 16:37 [facility] ED PFSH: Social History Smoking and tobacco/nicotine status: current every day tobacco/nicotine user Physical Exam Extremity: OTHER: Full-thickness laceration across the posterior aspect of the left hand with no active bleeding wound is gaping there is exposed joint and tendon there does appear to be some injury to the tendon as well. Course Vital Signs: Vital signs: Vital Signs Temperature 98.0 F 08/02/25 21:48 Pulse Rate 67 08/02/25 21:48 Respiratory Rate 20 H 08/02/25 21:48 Blood Pressure 115/81 08/02/25 21:48 Pulse Oximetry 95 08/02/25 21:48 Oxygen Delivery Me thod Room Air 08/02/25 21:48 MDM - Wound/Laceration Medical Decision Making Reviewed case with Dr. Agudelo he will take the patient to the OR for a washout and repair of laceration and evaluation of tendon and joint. Discussed with the patient his tetanus updated and he was given a gram of Ancef. Lab Data I reviewed the patient's lab results. 08/02/25 17:10 08/02/25 17:10 Radiology Impressions Hand X-Ray 08/02/25 16:38 IMPRESSION: Left hand soft tissue laceration with fractures of the left 4th and 5th digits. Laboratory Results WBC 9.29 10^3/uL (3.29-11.43) 08/02/25 17:10 RBC 4.52 10^6/uL (3.85-5.65) 08/02/25 17:10 Hgb 13.60 g/dL (11.27-16.99) 08/02/25 17:10 Hct 41.1 % (37-53) 08/02/25 17:10 MCV 90.9 fl (82-101) 08/02/25 17:10 MCH 30.1 pg (27-33) 08/02/25 17:10 MCHC 33.1 g/dL (30-55) 08/02/25 17:10 RDW 12.2 % (12.1-15.1) 08/02/25 17:10 Plt Count 277 10^3/cmm (157-399) 08/02/25 17:10 MPV 9.5 fL (7.4-10.4) 08/02/25 17:10 Neut % (Auto) 57.8 % 08/02/25 17:10 Lymph % (Auto) 30.4 % 08/02/25 17:10 [place] % (Auto) 8.5 % 08/02/25 17:10 Eos % (Auto) 2.4 % 08/02/25 17:10 Baso % (Auto) 0.5 % 08/02/25 17:10 Neut # (Auto) 5.37 10^3/uL (1.8-7.7) 08/02/25 17:10 Lymph # (Auto) 2.8 10^3/uL (0.8-4.8) 08/02/25 17:10 [place] # (Auto) 0.8 10^3/uL (0.2-0.9) 08/02/25 17:10 Eos # (Auto) 0.2 10^3/uL (0.0-0.8) 08/02/25 17:10 Baso # (Auto) 0.1 10^3/uL (0.0-0.1) 08/02/25 17:10 Nucleated RBC % (auto) 0 % 08/02/25 17:10 Nucleated RBCs # 0.0 /100WBC 08/02/25 17:10 Sodium 135 mmol/L (136-145) L 08/02/25 17:10 Potassium 4.5 mmol/L (3.5-5.1) 08/02/25 17:10 Chloride 101 mmol/L (98-107) 08/02/25 17:10 Carbon Dioxide 24 mmol/L (22-29) 08/02/25 17:10 Anion Gap 14.5 (5-19) 08/02/25 17:10 BUN 14 mg/dL (8-23) 08/02/25 17:10 Creatinine 0.8 mg/dL (0.7-1.2) 08/02/25 17:10 GFR Calculation 97.6 mL/min (90-130) 08/02/25 17:10 Glucose 107 mg/dL (65-115) 08/02/25 17:10 Calculated Osmolality 281 mOsm/kg (285-295) L 08/02/25 17:10 Calcium 8.7 mg/dL (8.5-10.5) 08/02/25 17:10 Total Bilirubin 0.8 mg/dL (0.15-1.2) 08/02/25 17:10 AST 40 U/L (0-40) 08/02/25 17:10 ALT 37 U/L (0-41) 08/02/25 17:10 Alkaline Phosphatase 82 U/L (40-130) 08/02/25 17:10 Total Protein 6.7 g/dL (6.6-8.7) 08/02/25 17:10 Albumin 3.6 g/dL (3.5-5.2) 08/02/25 17:10 Globulin 3.1 g/dL (1.3-4.6) 08/02/25 17:10 All radiology interpretation(s) finalized by discharge Discharge Plan Discharge Patient Disposition: Admitted As Inpatient Clinical Impression: Laceration of left hand involving extensor tendon, Contact with chainsaw as cause of accidental injury, Open fracture proximal phalanx finger, Open fracture metacarpal bone of finger Condition: Stable Discharge Diet: Advance as tolerated Discharge Activity: Limit activity as instructed Coding Level of Care Code ED Digital Sales Representative for Deo Beltran
[2025-08-02] MEDS: morphine 4 mg/mL SDV 1 mL IVP (17:21)
[2025-08-02] MEDS: tetanus-dipt-pertussis 0.5 mL SDV IM (17:22)
[2025-08-02 17:24] LABS: Hematocrit 41.1 % (37-53); Hemoglobin 13.60 g/dL (11.27-16.99); Mean Corpuscular HGB Conc 33.1 g/dL (30-55); Mean Corpuscular Hemoglobin 30.1 pg (27-33); Mean Corpuscular Volume 90.9 fl (82-101); Nucleated Red Blood Cells % 0 %; Platelet Count 277 10^3/cmm (157-399); Red Blood Count 4.52 10^6/uL (3.85-5.65); White Blood Count 9.29 10^3/uL (3.29-11.43)
[2025-08-02] MEDS: ceFAZolin 2,000 mg SDV 2000 MG IVP ×3 (17:30→19:29)
[2025-08-02 17:38] LABS: Alanine Aminotransferase 37 U/L (0-41); Albumin Level 3.6 g/dL (3.5-5.2); Alkaline Phosphatase 82 U/L (40-130); Blood Urea Nitrogen 14 mg/dL (8-23); Calcium 8.7 mg/dL (8.5-10.5); Carbon Dioxide 24 mmol/L (22-29); Chloride 101 mmol/L (98-107); Creatinine Clr Calc Pharmacy 104.0553; Globulin 3.1 g/dL (1.3-4.6); Glucose 107 mg/dL (65-115); Osmolality Calculated 281 mOsm/kg (285-295); Sodium 135 mmol/L (136-145); Total Protein 6.7 g/dL (6.6-8.7)
[2025-08-02 17:45] LABS: Anion Gap 14.5 (5-19); Potassium 4.5 mmol/L (3.5-5.1)
[2025-08-02 17:46] LABS: Aspartate Amino Transferase 40 U/L (0-40)
--- NOTE | 2025-08-02 18:51 | P.HP_ITS ---
Providers/Chief Complaint 2 Admitting Physician: Keanu Agudelo DO Primary Care Provider: Sanchez Mccabe MD Chief Complaint: L hand Pinkey cut History of Present Illness Maciej Park is a 65 year old male patient's was working with a chainsaw earlier today. He had the chainsaw kicked back and he has a dorsal hand and finger laceration of the small finger extending into the dorsal aspect of the hand. Patient per emergency department was able to open and close his fingers and actively extend his finger including a small finger as well. Given the complexly of the laceration as well is contamination orthopedics was consulted for evaluation and treatment recommendations. Patient states he last ate yesterday for dinner. He has not eaten yet today however he did have soda roughly around 315-330 this afternoon. Patient denies any other injuries elsewhere. Review of Systems 2 General: Reports: 10 or more systems reviewed and unremarkable except in HPI and below Medications/Allergies Home Medications ?Medication ?Instructions ?Recorded ?Confirmed ?Last Taken ?Type lisinopril 20 mg tablet 20 mg PO DAILY 05/29/2408/03 Unknown History meloxicam 15 mg tablet 15 mg PO DAILY #30 tabs 08/03 10/25 Unknown Rx Allergies Allergy/AdvReac Type Severity Reaction Status Date / Time bee venom Allergy Mild Unknown Uncoded 08/02/25 16:37 PFSH Acute 2 PFSH: Social History Smoking and tobacco/nicotine status: current every day tobacco/nicotine user Vitals/I&O/Wt Last Vital Signs Temp 98.2 F 08/02/25 18:38 Pulse 76 08/02/25 18:38 Resp 18 08/02/25 18:38 BP 138/86 08/02/25 18:38 Pulse Ox 97 08/02/25 18:38 O2 Del Method Room Air 08/02/25 18:38 08/02/25 08/02/25 08/02/25 06:59 14:59 22:59 Intake Total 0 / 0 Balance 0 / 0 Weight last 48 hrs Weight 180 lb Physical Exam 2 Narrative: Orthopedic examination of the left hand: Orthopedic examination left hand is limited secondary to patient just recently having dressing placed by the emergency department and patient having pain and discomfort and wishing not to have the dressing taken down. At this point in time examination is based off of clinical pictures from emergency department as well as per the emergency department examination. Patient has a complex laceration of the dorsal aspect of the hand extending from zone 3 into zone 5 and 6. Patient has visible tendon with complex laceration due to chainsaw. Per emergency department fingertip is neurovascularly intact with brisk capillary refill less than 2 seconds is able to flex and extend the small finger. Once again the rest of the examination elective and secondary to patient recently having a bedside washout the emergency department with wet-to-dry dressing. Data 08/02/25 17:10 08/02/25 17:10 Xray Ortho: Radiologist's impression: Patient: Maciej Park Unit #: [id number] : 1960 Age/Sex: 65 / M ADM Date: 08/02/25 Loc: ER Room/Bed: Attending Dr: Ordering Provider/Ordering MD: Vikram Ortega DO Date of Service: 08/02/25 Procedure(s): XR hand LT min 3V* [id number] Accession Number(s): [id number] Report Number: [id number] PROCEDURE INFORMATION: Exam: XR Left Hand Exam date and time: 08/02/2025 4:46 PM Age: 65 years old Clinical indication: Other: Lac; Additional info: Lt hand pain; Man vs chainsaw; Laceration to lt 5th digit. TECHNIQUE: Imaging protocol: Radiologic exam of the left hand. Views: 3 or more views. COMPARISON: No relevant prior studies available. FINDINGS: Bones/joints: There are fractures involving the proximal phalanx of the left hand 5th digit and left 4th metacarpal shaft. Multiple small bony fragments are noted. There are no radiopaque foreign body seen. Soft tissues: There is soft tissue laceration involving the ulnar portion of the left hand. XR/XR hand LT min 3V* [id number] IMPRESSION: Left hand soft tissue laceration with fractures of the left 4th and 5th digits. A&P Assessment and plan 1. Laceration of left hand involving extensor tendon: 2. Contact with chainsaw as cause of accidental injury: 3. Open fracture proximal phalanx finger: 4. Open fracture metacarpal bone of finger: Plan: N.p.o.?patient ate last night, last drink a soda at 3:30 PM X-rays reviewed?patient has small bony fragments from the left small finger proximal phalanx fracture and the left fourth metacarpal shaft these appear to be incomplete fractures and otherwise appear to be stable no other appreciable foreign bodies noted Pain control Patient received IV antibiotics in the emergency department Underwent bedside I&D with wet-to-dry dressing applied in the emergency department Orthopedics consulted Plan to take to the OR this evening in urgent fashion for a left hand irrigation and debridement with primary closure, possible tendon repair Patient this point time had a kickback from a chainsaw earlier today. He went to the emergency department was found to have ability to open and close his hand extended small digit but has a dorsal laceration extending from the zone 3 to zone 6 in the dorsal aspect of the hand including in the the left small finger. At this point in time given the complexity as well as contamination and there is small bony fragmentation from the chainsaw from the small finger proximal phalanx and the ring finger fourth metacarpal bone would recommend taking this to the OR this evening for a formal irrigation debridement with primary closure and plan for possible tendon repair if necessary. Patient at this point in time we detailed the ins and outs procedure the risk benefits complication alternatives surgical nonsurgical treatment options. Risk of surge include not limited to make a better make it worse, injury to nerves vessels or tendons, infection, decreased functional range of motion of the hand/stiffness, possible further surgeries and amputation. Understanding risk of surgery patient like to proceed with surgical invention. All questions have been answered at this time. Will go ahead and get him onto the surgery schedule today. Patient will receive IV antibiotics as he did in the emergency department and perioperatively and plan will be to discharge home this evening with appropriate dressings and splint in place and will receive p.o. antibiotics upon discharge. Patient understands agrees with current plan. All questions answered. PDMP PDMP Reviewed: Not Reviewed Attestations 2 Medical Necessity Statement*: Left hand complex laceration secondary to chainsaw injury with possible tendon involvement as well as fractures of the fifth proximal phalanx and the fourth metacarpal shaft Coding Level of Care Code Acute Code for Chg Fwd Diagnoses Laceration of left hand involving extensor tendon S61.412A; S66.822A Contact with chainsaw as cause of accidental injury W29.3XXA Open fracture proximal phalanx finger S62.619A Open fracture metacarpal bone of finger S62.309Q Time Spent (min) 50
--- NOTE | 2025-08-02 19:18 | P.ANESASSM_ITS ---
Pre-Anesthetic Assessment Height/Weight: Height 5 ft 11 in Weight 180 lb Temp Pulse Resp BP Pulse Ox O2 Del Method 98.2 F 76 18 138/86 97 Room Air 08/02/25 18:38 08/02/25 18:38 08/02/25 18:38 08/02/25 18:38 08/02/25 18:38 08/02/25 18:38 Preop Diagnosis: Chainsaw complex laceration left hand with open fractures fifth proximal ph Operation Date: 08/02/25 19:40 Proposed Procedures p Incision & Drainage Upper Extremity possible tendon repair(Left) - Keanu Jammie, DO Was Beta Mary taken within 24 hours: N/A Was Clonidine taken within 24 hours: N/A Social Alcohol and Tobacco Exam alert, oriented x 3 and clear to auscultation bilaterally Airway Submandibular: within normal limits Cervical ROM: Other (States he has neck pain at baseline) Mallampati: Class III Comments: Comments: No upper teeth, poor bottom dentition. Denies any loose teeth Anesthetic Plan ASA status: 2 Anesthesia: General Other: No prior issues with anesthesia Patient reportedly had a Pepsi around 3:30 PM today. No food today Lisinopril is on patient's chart but he states that he has recently stopped taking this medication because his blood pressure has leveled out. Preop BP 138/86 Smokes nicotine and marijuana Occasional alcohol use, 1?2 beers weekly Labs reviewed from today and assessable for procedure On auscultation patient appeared to have premature contractions. Hooked patient up to EKG in preop which confirmed this. Patient is currently asymptomatic Plan for GETA Medications/Allergies Home Medications ?Medication ?Instructions ?Recorded ?Confirmed ?Last Taken ?Type lisinopril 20 mg tablet 20 mg PO DAILY 05/29/2408/03 Unknown History meloxicam 15 mg tablet 15 mg PO DAILY #30 tabs 08/03 10/25 Unknown Rx Allergies Allergy/AdvReac Type Severity Reaction Status Date / Time bee venom Allergy Mild Unknown Uncoded 08/02/25 16:37 [facility] Anesthesia Social History Smoking and tobacco/nicotine status: current every day tobacco/nicotine user Data Anesthesia 08/02/25 17:10 08/02/25 17:10 Short CBC 08/02/25 Range/Units 17:10 WBC 9.29 (3.29-11.43) 10^3/uL Hgb 13.60 (11.27-16.99) g/dL Hct 41.1 (37-53) % MCV 90.9 (82-101) fl Plt Count 277 (157-399) 10^3/cmm Neut % (Auto) 57.8 % Neut # (Auto) 5.37 (1.8-7.7) 10^3/uL BMP 08/02/25 17:10 Sodium 135 L Potassium 4.5 Chloride 101 Carbon Dioxide 24 BUN 14 Creatinine 0.8 Glucose 107 Calcium 8.7 Liver Function 08/02/25 Range/Units 17:10 Total Bilirubin 0.8 (0.15-1.2) mg/dL AST 40 (0-40) U/L ALT 37 (0-41) U/L Alkaline Phosphatase 82 (40-130) U/L Albumin 3.6 (3.5-5.2) g/dL
[2025-08-02] MEDS: acetaminophen 1,000 MG/100 ML PIGGYBACK 400 MG IV (19:20)
[2025-08-02] MEDS: ROPivacaine 0.5% SDV 30 mL 150 MG INJECTION (20:00)
[2025-08-02] MEDS: neomycin-poly-bacitracin oint 28 gm 1 APPLIC TOPICAL (20:35)
--- NOTE | 2025-08-02 21:08 | P.BOP_ITS ---
Date of Procedure: 08/02/2025 Surgeon: Keanu Agudelo DO Service Vehicle Operator(s): None Procedure(s) performed: Left hand irrigation and debridement (10 cm x 4 cm x 1 cm) Left hand complex laceration primary closure Left hand fourth metacarpal fracture(incomplete)?closed treatment Left hand fifth finger proximal phalanx fracture (incomplete)?closed treatment Left hand extensor digiti minimi tendon repair Left hand extensor digitorum commonis /juncturae tendon to small finger tendon repair Left hand small finger sagittal band repair Left hand loose body bony fragment removal (x 2) Findings of the procedure(s): Patient was found to have a complex laceration with a chainsaw to the left small finger. Patient did have extensive tendon involvement however there was the ulnar aspect of the tendon was intact up to the extensor digiti minimi there was a longitudinal split through this which we did a [id number] repair there was also complete laceration of the EDC/juncture a tendon a which subsequently we were able to repair. Also the extensor camacho with sagittal bands was disrupted and underwent repair of this as well. Patient was found to have fractures of the proximal phalanx of the small finger as well as incomplete fracture of the fourth metacarpal both had loose bony fragments that were completely destabilized and devitalized of no soft tissue attachments the bony fragments were then subsequently removed the fractures were incomplete nature and were planning to being treated closed with ulnar gutter splinting. Patient did have complex laceration was able to achieve primary closure over the zone 4 region I was able to have soft tissue and fat some of the skin was completely removed we were able to get soft tissue and fat coverage over the entire tendon. Patient tolerated well without issues or complications taken recovery in stable condition with ulnar gutter splint placed Estimated blood loss: 10 mL Specimen(s) removed: 2 bony fragments from fracture removed Post-operative diagnosis: Left hand complex laceration secondary to chainsaw with extensor tendon involvement sagittal band involvement, left hand fourth metacarpal fracture, left hand fifth proximal phalanx fracture, loose body/bony fragments
--- NOTE | 2025-08-02 21:14 | P.OP_ITS ---
Operative Report Date of procedure: August 02, 2025 Pre-op diagnosis: Left hand chainsaw injury with extensor tendon involvement Post-op diagnosis: Left hand complex laceration secondary to chainsaw with extensor tendon involvement sagittal band involvement, left hand fourth metacarpal fracture, left hand fifth proximal phalanx fracture, loose body/bony fragments Post-op findings: See operative report narrative Procedure done: Left hand irrigation and debridement (10 cm x 4 cm x 1 cm) Left hand complex laceration primary closure Left hand fourth metacarpal fracture(incomplete)?closed treatment Left hand fifth finger proximal phalanx fracture (incomplete)?closed treatment Left hand extensor digiti minimi tendon repair Left hand extensor digitorum commonis /juncturae tendon to small finger tendon repair Left hand small finger sagittal band repair Left hand loose body bony fragment removal (x 2) Implants: Arthrex 4-0 FiberWire for tendon repair Specimens removed/disposition: 2x loose bodies/bony fragments removed Surgeon: Keanu Agudelo DO [employer] Supervisor: None Anesthesia: General Estimated blood loss: 10 mL 64 minutes IV fluids: 1000 mL Urine output: None Complications: None Findings: See operative report Condition: stable Disposition: same day Brief History: Patient is a pleasant 65-year-old male who sustained a chainsaw injury during a kickback to the left hand on the dorsal aspect this extended from zone 3 into zone 6. This was over the dorsal aspect and over the left small finger patient. Emergency Department was able to flex and extend his small finger. Patient does appear to have incomplete fractures of the fifth proximal phalanx and the fourth metacarpal. At this point in time given the complexity of the laceration possible soft tissue defect and contamination orthopedics was consulted for evaluation and treatment recommendations at this point in time given this extensiveness and complexity of the laceration recommend this going to the OR emergently for left hand irrigation and debridement with primary closure, possible tendon repair. Patient understands the ins and outs procedure the risk benefits complication alternatives surgical nonsurgical treatment options. Understanding risk of surgery patient like to proceed with surgical invention. All questions answered at this time. Procedure: Patient was seen evaluated in the preoperative holding area. Consent was reviewed and signed with patient. Correct extremities and subsequently marked once patient was seen evaluated by anesthesia and appropriate timing passed since patient's last oral intake patient was cleared for surgery and taken back to the operative suite he was kept on [facility]. This point time he went was in the OR and underwent anesthesia per the anesthesia apartment once properly anesthetized and armboard was applied to the left upper extremity a tourniquet was placed to the left upper extremity. An armboard applied to the left upper extremity. Patient then underwent a seizure. She department spoke anesthetized left upper extremities and prepped and draped in orthopedic fashion. Final timeout performed. Patient received appropriate preoperative antibiotics as already had received antibiotics Emergency Department upon admission as well. Esmarch tourniquet was exsanguinate the left upper extremity tourniquet insufflated 200 mmHg. This point in time I started off with irrigation just to debride and evaluate the extent that he of the injury. Thoroughly irrigation was performed of 3 L. At this point in time I then subsequently evaluated the extensive list of the dorsal hand complex laceration involving the small finger. On my evaluation thoroughly irrigation and debridement was performed of 10 cm x 4 cm x 1 cm entirety of the hand. At this point time this was debrided of all nonviable tissue which included skin subcutaneous tissue tendon and bone. This was all done with rongeur as well as sharp scalpel debridement and dissection scissors. This was taken of all nonviable tissue to healthy tissue. At this point in time it was clearly evident patient had chainsaw that did touch the ulnar cortices of the shaft of the fourth metacarpal as well as the shaft of the proximal phalanx on the small finger. At this point in time there was 2 small bony free-floating fragments with no viable tissue connected to this these were then subsequently removed atraumatically. At this point time I then brought in the fluoroscopic imaging to confirm removal of these which was satisfactory and then evaluated the fractures the fifth proximal phalanx of the small finger was incomplete nature and could see the saw Dent into the bone this was then thoroughly irrigated debrided with curette. I then subsequently did the same thing for the ulnar corner to see on the fourth metacarpal fracture this was again once was incomplete and then taken through range of motion this fracture remains stable at this point time there is no necessary for fracture fixation this can be treated conservatively with immobilization. Next at this point in time I once again thoroughly irrigated and then visualized the extent of the extensor tendon injury. It was clearly evident patient had injury from just proximal to the PIP joint at the level of zone 3 and this extended all the way up into the zone 6. This was a straight longitudinal cut where there was a significant loss on the and a laceration on the radial 70% of the tendon over proximal phalanx. It was clearly evident there was still roughly 50% of the EDM intact. The residual that was torn and subluxed radially I then subsequently utilized FiberWire and repaired this in a running stitch fashion over the proximal phalanx to have covered the ring of bone. At this point in time I then encountered over zone 5 that there was sagittal band injury this was then repaired with 3 and 4-0 Monocryl suture to help centralize the tendon is much as possible once again given the extensiveness and obviously jagged edge cut this was sutured and repaired as best as possible. At this point in time it was evident that the juncturae tendon a and the EDC to the small finger was severed at the zone 6 region. I then at this point in time I identified where this stump had been truncated freshened up both edges of the tendon and did an end-to-end repair on this as well. This was done with 4-0 FiberWire as well with 4 core strand sutures. Patient at this point in time we then thoroughly irrigated once more again took final x-rays mini C arm confirming removal of the loose bodies that were evident on x-ray and confirmed the removal of these. Again the fractures were incomplete and stable. I then was satisfied with the repairs of the partial tear of the EDM as well as the repair of the EDC/juncturae tendon a as well as the repair of the sagittal band. Once again final irrigation performed tourniquet deflated hemostasis was satisfactory this was then closed in interrupted nylon suture fashion. Patient was able to have a good closure over 90% primarily as well as over the proximal phalanx where there did appear to have some soft tissue defect I was able to mobilize some of the fourth webspace skin immobilizes over as well as had significant subcutaneous fat tissue to cover this as well. This will likely need some wound care and healing and by secondary intention over the dorsal aspect the proximal phalanx. This was then covered with triple antibiotic ointment Xeroform 4 x 4's ABD and an ulnar gutter splint was then subsequently applied patient was then awakened from anesthesia and taken recovery in stable condition. Patient Toller procedure well without issues or complication taken recovery in stable condition. Disposition: Patient recovery in stable condition patient will receive appropriate antibiotics postoperatively. He has had good thorough debridement and's been on IV antibiotics. At this point in time after discussion with patient feel he is stable for discharge home later this evening we will however recommend p.o. antibiotics for the next 10 days and maintaining his splint. We will try to get him in with our OT hand therapy team before the 2-week follow-up just for dressing change and possibly a new custom splint applied. Patient will receive appropriate discharge structures in the as well as pain medication antibiotics. Patient understands and agrees with current plan. All questions answered at this time.
[2025-08-02] MEDS: HYDROcodone-acetaminophen 5-325 mg Tablet 2 TAB PO (21:49)
== END 2025-08-02 18:18 | disposition home or self-care (01) ==
LOC: ER 17:30 → OR 18:18
PROVIDERS: Emergency Provider Family Medicine; PCP Family Medicine; Visit Provider Student in an Organized Health Care Education/Training Program
PROC: (CPT 26418; principal; 2025-08-02 19:30)
PROC: (CPT 26615; 2025-08-02 19:30)
PROC: (CPT 26418; 2025-08-02 19:30)
PROC: (CPT 26418; 2025-08-02 19:30)
DX: S61.412A Laceration without foreign body of left hand, initial encounter (principal); S62.305A Unspecified fracture of fourth metacarpal bone, left hand, initial encounter for closed fracture; S62.617A Displaced fracture of proximal phalanx of left little finger, initial encounter for closed fracture; W29.3XXA Contact with powered garden and outdoor hand tools and machinery, initial encounter; M67.844 Other specified disorders of tendon, left hand; F17.200 Nicotine dependence, unspecified, uncomplicated; F12.90 Cannabis use, unspecified, uncomplicated
CPT/HCPCS: 26418 ×2; 12044; 36415; 73120; 73130; 76000; 80053; 85025; 90471; 90715; J0131; J0690; J1885; J2270; J2371; J2704; J2795; J9999

== ENCOUNTER → 2025-08-27 10:58 | Outpatient (BNVA) | payer SELFPAY | PROVIDERS: PCP Family Medicine; Visit Provider Physician Assistant | DX: S62.347D Nondisplaced fracture of base of fifth metacarpal bone, left hand, subsequent encounter for fracture with routine healing (principal); S62.615D Displaced fracture of proximal phalanx of left ring finger, subsequent encounter for fracture with routine healing; W29.3XXD Contact with powered garden and outdoor hand tools and machinery, subsequent encounter | CPT/HCPCS: 73130 ==

== ENCOUNTER 2025-08-27 14:43 | Outpatient (CLI) | payer SELFPAY | END 2025-08-27 14:44 | disposition home or self-care (01) | LOC: SPT 14:44 | PROVIDERS: PCP Family Medicine; Visit Provider Physician Assistant | DX: Z47.89 Encounter for other orthopedic aftercare (principal); S62.309D Unspecified fracture of unspecified metacarpal bone, subsequent encounter for fracture with routine healing; S62.619D Displaced fracture of proximal phalanx of unspecified finger, subsequent encounter for fracture with routine healing; S61.412D Laceration without foreign body of left hand, subsequent encounter; S66.822D Laceration of other specified muscles, fascia and tendons at wrist and hand level, left hand, subsequent encounter; X58.XXXD Exposure to other specified factors, subsequent encounter | CPT/HCPCS: L3984 ==

== ENCOUNTER → 2025-09-08 11:28 | Outpatient (BNVA) | payer MEDICAID, SELFPAY | PROVIDERS: PCP Family Medicine; Visit Provider Thoracic Surgery (Cardiothoracic Vascular Surgery) | DX: I96 Gangrene, not elsewhere classified (principal); S61.412D Laceration without foreign body of left hand, subsequent encounter; W29.3XXD Contact with powered garden and outdoor hand tools and machinery, subsequent encounter | CPT/HCPCS: 97597 ==

== ENCOUNTER → 2025-09-10 13:29 | Outpatient (BNVA) | payer MEDICAID, SELFPAY | PROVIDERS: PCP Family Medicine; Visit Provider Physician Assistant | DX: Z98.890 Other specified postprocedural states (principal) | CPT/HCPCS: 73130 ==